=== PATIENT | male | born 1960 | race Caucasian/White ===

== ENCOUNTER 2016-08-01 13:45 | Emergency (ER) | payer MEDICARE ==
[~2016-08-01 13:45] MED LIST: ECOTRIN81 MG PO; HUMALOG 10100 UNITS/ SQ; HUMALOG100 UNIT/1 SQ; JANUVIA25 MG PO; LEVAQUIN750 MG PO; LEVEMIR100 UNIT/1 SQ; LIPITOR TAB 2020 MG PO; NEURONTIN 100100 MG PO; PROTONIX40 MG PO; TRAMADOL HCL50 MG PO; VALIUM 5 MG TAB5 MG PO
[2016-08-01 16:10] LABS: RED BLOOD COUNT 4.51 M/UL (4.20-5.50); WHITE BLOOD COUNT 10.4 K/UL (4.5-11.0)
[2016-08-01 16:27] LABS: BUN/CREATININE RATIO 20 (0-10)
== END 2016-08-01 17:46 | disposition home or self-care (01) ==
LOC: ER1 13:45
PROVIDERS: Emergency Medicine
DX: E11.649 Type 2 diabetes mellitus with hypoglycemia without coma (principal); Z79.4 Long term (current) use of insulin
CPT/HCPCS: 36415; 71010; 80053; 81001; 82962; 85025; 93005; 96374; 99285